=== PATIENT | male | born 1955 | race Caucasian/White ===

== ENCOUNTER 2018-06-20 16:40 | Outpatient (REF) | payer OTHER, SELFPAY ==
[2018-06-20 19:20] LABS: ALT 37 U/L (12-78); AST 28 U/L (15-37); Albumin 3.5 g/dL (3.4-5.0); Alkaline Phosphatase 116 U/L (46-116); Anion Gap 10.1 mmol/L (3-11); BUN 23 mg/dL (7-18); Bilirubin, Total 0.2 mg/dL (0.2-1.0); CO2 26.9 mmol/L (21.0-32.0); CREATININE 1.51 mg/dL (0.70-1.30); Calcium 8.7 mg/dL (8.5-10.1); Chloride 105 mmol/L (98-107); Estimated GFR 46.76 (mL/min/1.73m2); Glucose 110 mg/dL (70-100); Potassium 4.6 mmol/L (3.5-5.1); Sodium 142 mmol/L (136-145); Total Protein 7.1 g/dL (6.4-8.2)
[2018-06-23 10:57] LABS: PSA, Screening 0.9 ng/ml (0-4.5)
== END 2018-06-20 17:00 ==
LOC: NCHCN 16:40
PROVIDERS: PCP Family Medicine; Visit Provider Family Medicine
DX: Z00.00 Encounter for general adult medical examination without abnormal findings (principal); I10 Essential (primary) hypertension; N28.9 Disorder of kidney and ureter, unspecified; R73.9 Hyperglycemia, unspecified; Z12.5 Encounter for screening for malignant neoplasm of prostate
CPT/HCPCS: 80053; 84153; 83036

== ENCOUNTER 2019-03-27 16:40 | Outpatient (REF) | payer OTHER, SELFPAY ==
[2019-03-27 19:14] LABS: HCT 51.4 % (40.0-50.0); HGB 16.7 g/dL (13.5-17.5); Mean Corp. HGB Concentration 32.5 g/dL (32.0-36.0); Mean Corpuscular Hemoglobin 29.2 pg (27.0-33.0); Platelet Count 196 x1000/uL (130-400); RBC 5.71 m/cumm (4.50-6.00); RBC Distribution Width 13.7 % (11.8-14.1); White Blood Cell Count 8.81 k/cumm (4.4-10.8)
[2019-03-27 19:28] LABS: Anion Gap 8.4 mmol/L (3-11); BUN 27 mg/dL (7-18); CO2 28.6 mmol/L (21.0-32.0); CREATININE 1.48 mg/dL (0.70-1.30); Calcium 9.1 mg/dL (8.5-10.1); Chloride 104 mmol/L (98-107); Glucose 89 mg/dL (74-106); Sodium 141 mmol/L (136-145)
[2019-03-27 19:44] LABS: Hemoglobin A1C 5.8 % (4.5-6.2)
[2019-03-30 13:00] LABS: Varicella IgG Antibody Positive (See Note)
== END 2019-03-27 17:00 ==
LOC: NCHCN 16:40
PROVIDERS: PCP Family Medicine; Visit Provider Family Medicine
DX: Z00.00 Encounter for general adult medical examination without abnormal findings (principal); R73.9 Hyperglycemia, unspecified; D64.9 Anemia, unspecified; N28.9 Disorder of kidney and ureter, unspecified; I10 Essential (primary) hypertension; Z11.59 Encounter for screening for other viral diseases
CPT/HCPCS: 80048; 85027; 86787; 83036

== ENCOUNTER 2020-04-07 11:13 | Outpatient (REF) | payer OTHER, SELFPAY ==
[2020-04-07 18:41] LABS: HCT 54.4 % (40.0-50.0); HGB 17.6 g/dL (13.5-17.5)
[2020-04-07 19:27] LABS: Hemoglobin A1C 5.8 % (<5.7)
[2020-04-07 19:35] LABS: ALT 34 U/L (16-63); AST 23 U/L (15-37); Albumin 3.8 g/dL (3.4-5.0); Alkaline Phosphatase 64 U/L (46-116); Anion Gap 8.6 mmol/L (3-11); BUN 28 mg/dL (7-18); Bilirubin, Total 0.5 mg/dL (0.2-1.0); CO2 27.4 mmol/L (21.0-32.0); CREATININE 1.52 mg/dL (0.70-1.30); Calcium 9.5 mg/dL (8.5-10.1); Calculated LDL 139 mg/dL (<100); Chloride 103 mmol/L (98-107); Cholesterol 213 mg/dL (<200); Estimated GFR 46.11 (mL/min/1.73m2); Glucose 111 mg/dL (74-106); HDL Cholesterol 35 mg/dL (40-60); Potassium 4.7 mmol/L (3.5-5.1); Sodium 139 mmol/L (136-145); Total Protein 7.6 g/dL (6.4-8.2); Triglyceride 197 mg/dL (<150)
== END 2020-04-07 11:33 ==
LOC: NCHCN 11:13
PROVIDERS: PCP Family Medicine; Visit Provider Family Medicine
DX: D64.9 Anemia, unspecified (principal); I10 Essential (primary) hypertension; R73.03 Prediabetes; N28.9 Disorder of kidney and ureter, unspecified
CPT/HCPCS: 80053; 80061; 83036; 85014; 85018

== ENCOUNTER 2021-04-11 10:21 | Outpatient (REF) | payer OTHER, SELFPAY ==
[2021-04-11 13:20] LABS: HCT 51.3 % (40.0-50.0); HGB 16.4 g/dL (13.5-17.5)
[2021-04-11 13:30] LABS: ALT 32 U/L (16-63); AST 19 U/L (15-37); Albumin 3.6 g/dL (3.4-5.0); Alkaline Phosphatase 105 U/L (46-116); Anion Gap 12.7 mmol/L (3-11); BUN 33 mg/dL (7-18); Bilirubin, Total 0.3 mg/dL (0.2-1.0); CO2 24.3 mmol/L (21.0-32.0); CREATININE 1.3 mg/dL (0.70-1.30); Calcium 9.9 mg/dL (8.5-10.1); Calculated LDL 89 mg/dL (<100); Chloride 105 mmol/L (98-107); Cholesterol 147 mg/dL (<200); Estimated GFR 55.06 (mL/min/1.73m2); Glucose 118 mg/dL (74-106); HDL Cholesterol 36 mg/dL (40-60); Potassium 5.1 mmol/L (3.5-5.1); Sodium 142 mmol/L (136-145); Total Protein 8.1 g/dL (6.4-8.2); Triglyceride 111 mg/dL (<150)
[2021-04-11 13:34] LABS: Hemoglobin A1C 5.9 % (<5.7)
[2021-04-11 23:30] LABS: PSA, Screening 1.4 ng/mL (0.0-4.5)
== END 2021-04-11 10:22 | disposition home or self-care (01) ==
LOC: NCHCN 10:21
PROVIDERS: PCP Family Medicine; Visit Provider Family Medicine
DX: I25.5 Ischemic cardiomyopathy (principal); R73.03 Prediabetes; Z00.00 Encounter for general adult medical examination without abnormal findings; E78.5 Hyperlipidemia, unspecified; Z12.5 Encounter for screening for malignant neoplasm of prostate
CPT/HCPCS: 80053; 80061; 84153; 83036; 85014; 85018

== ENCOUNTER 2022-04-17 15:28 | Outpatient (REF) | payer MEDICARE, SELFPAY ==
[2022-04-17 15:47] LABS: HCT 55.2 % (40.0-50.0); MCH 30.2 pg (27.0-33.0); MCHC 32.6 % (32.0-36.0); MCV 93 fL (80-95); MPV 12.2 fL (8.0-11.0); Platelet Count 173 10^3/uL (130-400); RBC 5.96 10^6/uL (4.36-5.78); RDW 14.3 % (11.8-14.1); RDW-SD 49.1 fL; WBC 7.07 10^3/uL (4.4-10.8)
[2022-04-17 16:27] LABS: ALT 59 U/L (16-63); AST 37 U/L (15-37); Alkaline Phosphatase 82 U/L (46-116); Anion Gap 8.3 mmol/L (3-11); BUN 31 mg/dL (7-18); Bilirubin, Total 0.6 mg/dL (0.2-1.0); CO2 25.7 mmol/L (21.0-32.0); CREATININE 1.7 mg/dL (0.70-1.30); Chloride 102 mmol/L (98-107); Creatine Kinase 114 U/L (39-308); Estimated GFR 43.37 (mL/min/1.73m2); Glucose 124 mg/dL (74-106); Potassium 5.5 mmol/L (3.5-5.1); Sodium 136 mmol/L (136-145); Total Protein 8.6 g/dL (6.4-8.2)
[2022-04-17 16:34] LABS: Hemoglobin A1C 5.8 % (<5.7)
[2022-04-18 10:14] LABS: PSA, Diagnostic 1.3 ng/mL (<=4.5)
== END 2022-04-17 15:29 | disposition home or self-care (01) ==
LOC: NCHCN 15:28
PROVIDERS: PCP Family Medicine; Visit Provider Family Medicine
DX: R73.03 Prediabetes (principal); E78.5 Hyperlipidemia, unspecified; Z00.00 Encounter for general adult medical examination without abnormal findings; I10 Essential (primary) hypertension; I25.5 Ischemic cardiomyopathy; D64.9 Anemia, unspecified; N28.9 Disorder of kidney and ureter, unspecified
CPT/HCPCS: 80053; 82550; 85027; 83036; 84153

== ENCOUNTER → 2022-06-19 08:57 | Outpatient (BNVA) | payer MEDICARE, SELFPAY | PROVIDERS: PCP Family Medicine; Referring Provider Family Medicine; Visit Provider Physical Therapy Assistant | DX: R19.5 Other fecal abnormalities (principal); Z80.0 Family history of malignant neoplasm of digestive organs | CPT/HCPCS: 99203 ==

== ENCOUNTER 2022-06-28 09:15 | Day surgery (SDC) | payer MEDICARE, SELFPAY ==
--- NOTE | 2022-06-28 05:34 | W.PM.DSUDISC ---
Date of service: 06/28/22 Time of Service: 12:37 Discharge Plan Disposition Patient Disposition: Home Condition: Good Discharge Details Reason For Visit: Screening colonoscopy Attending Provider: Ramin Fox Primary Care Provider: Radha Stewart V Home Meds and New Rx's Prescriptions: Continued aspirin [Adult Aspirin Regimen] 81 mg tablet,delayed release (DR/EC) 81 mg PO DAILY pantoprazole 20 mg tablet,delayed release (DR/EC) 20 mg PO DAILY lisinopril 20 MG tablet 20 mg PO DAILY acetaminophen [Tylenol Extra Strength] 500 MG tablet 500 mg PO PRN Patient Comments: sometimes Tylenol arthritis sometimes extra strength tylenol 04/29/17 DCW . Pt. took two tablets of arthritis type t-1 1999 metoprolol tartrate 25 MG tablet 12.5 mg PO BID atorvastatin [Lipitor] 40 MG tablet 40 mg PO DAILY Patient Comments: 04.18.17 CORRECTING FOR PATIENT FROM 04.17.17 VISIT.HE ibuprofen 800 MG tablet 800 mg PO TID Qty: 30 0RF allopurinol 300 MG tablet 150 mg PO DAILY multivitamin [Daily Multi-Vitamin] 1 EACH tablet 1 ea PO DAILY Discontinued bisacodyl [Dulcolax (bisacodyl)] 5 mg tablet,delayed release (DR/EC) 5 mg PO ONCE Qty: 4 0RF Rx Instructions: Take according to provider's instructions for colonoscopy prep. polyethylene glycol 3350 17 gram/dose powder 17 g PO ONCE Qty: 238 0RF Rx Instructions: To be taken as directed by prescriber's office for colonoscopy prep. Discharge Instructions Instructions: Diverticulosis (GEN), Diverticulosis Diet (GEN) Additional Instructions: Jacky, I was able to complete your colonoscopy today. The quality of your preparation was excellent. I had good visualization of the entire lining of your colon. I did not see any evidence of polyps or tumors. You do have some mild sigmoid diverticulosis. It is possible that this could trigger the Cologuard test, since diverticula can be associated with some bleeding, and some forms of inflammation. A traditional recommendation after a negative colonoscopy is to follow-up in 10 years. However, with this positive Cologuard test I would tend to err on the side of caution, and repeat your colonoscopy in 5 years if you feel up to it 1. If tolerated, consume a soft, low fiber diet for 1-2 days. 2. Do not drive, drink alcohol, operate machinery, make critical decisions, or do activities that require coordination or balance for 24 hours. 3. Because air was put into your colon during the procedure, expelling air from your rectum (passing gas or farting) is normal. 4. You may not have a bowel movement for 1-3 days because of the colonoscopy prep. This is normal. 5. Go directly to the emergency room if you notice any of the following: Develop chills (warm to touch), or if you have a thermometer and your temperature is above 101 Difficulty breathing or difficultly swallowing Persistent vomiting Severe abdominal pain, other than gas cramps Severe chest pain Black, tarry stools Any bleeding ? exceeding one tablespoon 6. Call your physician if the site where your intravenous was started becomes red, swollen, painful, and warm to touch. 7. Your physician has reviewed your pre-procedure medications. Please continue to take those medications as previously ordered. You will be given specific information/education regarding any changes to your medications before leaving. Activity:: Activity as Tolerated Diet:: As Tolerated Discharge Orders Discharge Orders: Discharge Order (Routine); Ordered 06/28/22 Ordered By: Ramin Fox DS: Diagnosis Discharge Diagnosis (1) Positive colorectal cancer screening using Cologuard test: Status: Acute Asessment and Plan: Normal-appearing colonoscopy, with excellent prep. Based on this positive Cologuard test, I recommend another screening test in 5 years. I think a Cologuard would be fine at that time. If that Cologuard is negative, I would believe those results. Alternatively, direct visualization with colonoscopy would be a reasonable option as well.
--- NOTE | 2022-06-28 05:49 | W.COLOREPORT ---
Date of service: 06/28/22 Time of Service: 12:40 Colonoscopy Report Date of procedure: 06/28/22 Pre-op diagnosis general: Screening colonoscopy Post-op diagnosis procedure note: other (Diverticulosis) Procedure: Colonoscopy Surgeon: Ramin Fox Anesthesia Type: General:No Airway Estimated blood loss (mL): 0 Pathology: none sent Complications: None Disposition: same day Indications: Jacky is a 67 year old male with a positive cologuard test. He is here for screening colonoscopy Prep: Miralax/Dulcolax Procedure Start Time: 12:13 Procedure End Time: 12:30 Retraction Time: 12 Findings: Rare sigmoid diverticulosis Procedure Description: After the induction of monitored anesthetic care, and with the patient in left lateral decubitus position, I began by performing an external anorectal exam.? Perineum and skin were normal, as was the anal verge.? There was no evidence of external hemorrhoids.? Next, I performed a digital rectal exam.? I did not appreciate any abnormal findings.? Next, I advanced a colonoscope into the rectal vault.? I performed retroflexion.? This was normal.? Using insufflation, I then advanced the colonoscope beyond the rectal folds and into the sigmoid colon before advancing towards the cecum.? The quality of the prep was excellent.? There were rare, small sigmoid diverticuli. The scope was noted to be in the cecum by identification of the ileocecal valve and appendiceal orifice.? I then began withdrawing the colonoscope using repeated irrigation as necessary for full evaluation of the colonic mucosa. ?Once the scope was withdrawn to the level of the rectum, great care was taken to examine portions of the rectal folds.? Finally, the scope was withdrawn and the patient was brought to the same-day surgery recovery unit as the anesthetic wore off. ?Aside from some diverticulosis, which may cause the Cologuard to be positive, I did not see any other signs of colon polyps or cancers. The findings and instructions were shared with the patient prior to discharge. Traditional recommendations described 10-year intervals for screening colonoscopies with normal results. However, the influence of Cologuard testing at this point is uncertain. In that regard, I would recommend another test in 5 years.
[2022-06-28 09:10] VITALS: BP 165/99; PULSE 64; RESP 16; TEMP 36.4; O2SAT 97
[2022-06-28] MEDS: Lactated Ringers 1,000 ML 80 ML IV (10:10)
--- NOTE | 2022-06-28 10:17 | W.ANESPRE ---
General Info Date of Service Date Performed: 06/28/22 Height: 5 ft 7.5 in Weight: 99.7 kg Body Mass Index (BMI): 33.9 Surgical Procedure: Operation Date: 06/28/22 11:05 Proposed Procedure Side Surgeon lorin Fox MD Meds Allergies and Home Medications Allergies Allergy/AdvReac Type Severity Reaction Status Date / Time amlodipine besy-benazepril Allergy Severe Skin Rash Uncoded 06/28/22 09:55 Home Medication Medication Instructions Recorded allopurinol 300 mg tablet 150 mg PO DAILY 03/05/17 multivitamin (Daily Multi-Vitamin 1 ea PO DAILY 03/05/17 tablet) acetaminophen 500 mg tablet 500 mg PO PRN 04/17/17 (Tylenol Extra Strength) lisinopril 20 mg tablet 20 mg PO DAILY 04/17/17 metoprolol tartrate 25 mg tablet 12.5 mg PO BID 04/17/17 atorvastatin 40 mg tablet (Lipitor) 40 mg PO DAILY 04/18/17 ibuprofen 800 mg tablet 800 mg PO TID #30 tabs 05/02/17 aspirin 81 mg tablet,delayed 81 mg PO DAILY 06/18/22 release (Adult Aspirin Regimen) pantoprazole 20 mg tablet,delayed 20 mg PO DAILY 06/18/22 release Current Visit Medications: Current Medications Generic Name Dose Route Start Last Admin Trade Name Varunq PRN Reason Stop Dose Admin Hyoscyamine Sulfate 0.125 mg 06/28/22 05:51 Hyoscyamine 0.125 Mg Sl/Oral/Chew SL DIRECTED PRN Ringer's Solution 1,000 mls @ 80 mls/hr 06/28/22 06:00 06/28/22 10:10 IV 07/27/22 23:59 80 mls/hr INFUSION MIKA Administration IV Miscellaneous Supplies 1 each 06/28/22 06:00 Iv Access IV 07/27/22 23:59 DIRECTED MIKA Ondansetron HCl 4 mg 06/28/22 05:51 Ondansetron 4 Mg/2 Ml Vial IVP Q4H PRN PRN Nausea / Vomiting Sodium Chloride 0 ml 06/28/22 06:00 Normal Saline Flush 10 Ml Syr IV 07/27/22 23:59 PRN PRN Sodium Chloride 0 ml 06/28/22 06:00 Normal Saline 10 Ml Vial IJ 07/27/22 23:59 DIRECTED PRN Sterile Water 0 ml 06/28/22 06:00 Water,Injection,Sterile 10 Ml Vial IJ 07/27/22 23:59 DIRECTED PRN PFSH Active Problems Active Problems: Problem Status Onset Code GI bleed due to NSAIDs K92.2, T39.395A CKD (chronic kidney disease) N18.9 Coronary artery disease I25.10 Guaiac positive stools R19.5 Hyperlipidemia E78.5 Essential tremor G25.0 Prediabetes R73.03 Medication management Z79.899 Ischemic cardiomyopathy I25.5 Anemia D64.9 Shoulder pain, right M25.511 Duodenal ulcer K26.9 Proteinuria R80.9 Gout M10.9 Hypertension I10 Positive colorectal cancer screening using Cologuard test R19.5 Medical History Medical History NSTEMI (non-ST elevated myocardial infarction) Per pt. stated he was told he had a heart attack but does not know when (was told this in 2018). Per pt. 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 Surgical History Surgical History (Updated 06/28/22 @ 10:01 by Lizzette Johnston) EGD - MAC (03/07/17) History of shoulder surgery Tobacco Smoking/Tobacco Use Status: Never Alcohol Alcohol Intake: current Alcohol intake frequency: holidays/special occasions only Substance Use Substance use: Never Substance use type: does not use Vital Signs and Lab Results Vital Signs Most Recent Vital Signs in EMR: Most Recent Vital Signs Temp Pulse Resp BP Pulse Ox 36.4 C L 64 16 165/99 H 97 06/28/22 09:10 06/28/22 09:10 06/28/22 09:10 06/28/22 09:10 06/28/22 09:10 Lab Results Blood Type / Crossmatch: No Data to Display Complete Blood Count: No Data to Display Complete Metabolic Panel: No Data to Display Liver Function Panel: No Data to Display Coagulation Panel: No Data to Display Cardiac Panel: No Data to Display Arterial Blood Gas: No Data to Display Venous Blood Gas: No Data to Display Pancreas Panel: No Data to Display Thyroid Panel: No Data to Display Infectious Disease: No Data to Display Blood Cultures: No Data to Display Toxicology Panel: No Data to Display Imaging and Studies Imaging and Studies Study information below may be from another EMR and interpreted by another provider. Please see original notes in EMR for more complete details. Echocardiogram Summary: Date of study: 03/06/2017 Transthoracic Echocardiography M-mode, complete 2D, complete spectral Doppler, and color Doppler *STUDY CONCLUSIONS* Impressions: Mild ischemic cardiomyopathy, with normal left-sided filling pressure. Summary: 1. Left ventricle: The cavity size was at the upper limits of normal. There was mild focal basal hypertrophy of the septum. There was a false tendon within the ventricle. Systolic function was mildly reduced. The estimated ejection fraction was 45-50%. Akinesis of the basal-midinferior myocardium. Akinesis of the entireinferolateral myocardium. 2. Right ventricle: The cavity size was normal. Wall thickness was normal. Systolic function was normal. Normal Valves Anesthesia Assessment and Plan Anesthesia History Personal History: No History of Anesthesia Complications Family History: No Family History of Anesthesia Complications Exercise Tolerance Exercise Tolerance: Metabolic Equivalents>4 Pertinent Negatives Pertinent Negatives: No Symptoms of GERD and No Major Pulmonary Symptoms or Complaints Cardiac & Pulmonary Exam Cardiac Exam: Normal S1/S2 Heart Sounds Pulmonary Exam: Clear Bilateral Breath Sounds Implantable Cardiac Device Does patient have a Pacemaker or an ICD?: No Airway Exam Known Difficult Airway: No Mallampati Class: 1 Mouth Opening: Normal (> 3cm) Thyromental Distance: Greater than 3 cm Neck Range of Motion: Full ROM Neck Circumference: Normal Teeth Condition: Normal Dentition ASA Classification ASA Score: ASA 3 Emergency Case?: No NPO Status NPO Status: NPO Clears >2 hours, Solids >8 hours Anesthesia Plan Resuscitation Status: Full Code Anesthesia Technique: General Anesthesia Airway Planned: Natural Airway Monitors Used: Standard Monitors
[2022-06-28 10:19] VITALS: BMI 33.9
[2022-06-28 12:35] VITALS: BP 105/77; PULSE 69; RESP 17; TEMP 36.7; O2SAT 93
[2022-06-28 12:42] VITALS: BP 107/76; PULSE 63; RESP 18; O2SAT 94
[2022-06-28 12:46] VITALS: BP 127/87; PULSE 69; RESP 18; O2SAT 95
[2022-06-28 13:00] VITALS: BP 144/100; PULSE 60; RESP 16; TEMP 36.4; O2SAT 98
--- NOTE | 2022-06-28 14:25 | W.ANESPOSTOP ---
Postoperative Evaluation Date, Time and Location Date Performed: 06/28/22 Time Performed: 12:40 Patient Location: Day Surgery Unit Vital Signs Most Recent Imported Vital Signs: Most Recent Vital Signs Temp Pulse Resp BP Pulse Ox 36.4 C L 60 16 144/100 H 98 06/28/22 13:00 06/28/22 13:00 06/28/22 13:00 06/28/22 13:00 06/28/22 13:00 Pain Score Most Recent Pain Score: Most Recent Pain Score Pain Level 0 06/28/22 13:00 Assessment Mental Status: Awake (Alert & Oriented to Patient Baseline) Airway and Respiratory Function: Patent airway with normal (patient baseline) respiratory exam Cardiovascular Function: Hemodynamically Stable Hydration Status: Adequately Hydrated Nausea & Vomiting: No Nausea or Vomiting Pain: Pt. Denies Any Pain Peripheral Nerve Block: Patient did not receive a nerve block
== END 2022-06-28 13:30 | disposition home or self-care (01) ==
PROVIDERS: PCP Family Medicine; Visit Provider Surgery
PROC: 0DJD8ZZ Inspection of Lower Intestinal Tract, Via Natural or Artificial Opening Endoscopic (ICD-10-PCS; CPT 45378; principal; 2022-06-28 11:00)
DX: R19.5 Other fecal abnormalities (principal); K57.30 Diverticulosis of large intestine without perforation or abscess without bleeding
CPT/HCPCS: 45378

== ENCOUNTER 2022-07-16 11:21 | Outpatient (REF) | payer MEDICARE, SELFPAY ==
[2022-07-16 15:21] LABS: BUN 24 mg/dL (7-18); CREATININE 1.5 mg/dL (0.70-1.30); Calcium 9.5 mg/dL (8.5-10.1); Chloride 106 mmol/L (98-107); Glucose 133 mg/dL (74-106); Potassium 4.6 mmol/L (3.5-5.1); Sodium 139 mmol/L (136-145)
== END 2022-07-16 11:22 | disposition home or self-care (01) ==
LOC: NCHCN 11:21
PROVIDERS: PCP Family Medicine; Visit Provider Family Medicine
DX: I10 Essential (primary) hypertension (principal); E78.5 Hyperlipidemia, unspecified
CPT/HCPCS: 80048

== ENCOUNTER 2023-04-18 14:14 | Outpatient (REF) | payer MEDICARE, SELFPAY ==
[2023-04-18 16:27] LABS: Abs Immature Grans 0.03 10^3/uL (0.0-0.06); Absolute Basophil Count 0.03 10^3/uL (0.0-0.2); Absolute Eosinophil Count 0.08 10^3/uL (0.0-0.7); Absolute Lymphocyte Count 1.81 10^3/uL (1.2-3.4); Absolute Monocyte Count 0.72 10^3/uL (0.1-0.8); Absolute Neutrophil Count 4.37 10^3/uL (1.2-6.7); Basophils % 0.4; Eosinophils % 1.1; HCT 52.4 % (40.0-50.0); HGB 17.3 g/dL (13.5-17.5); Immature Grans % 0.4; Lymphocytes % 25.7; MCH 30.6 pg (27.0-33.0); MCV 93 fL (80-95); Monocytes % 10.2; Neutrophils % 62.2; Platelet Count 173 10^3/uL (130-400); RBC 5.65 10^6/uL (4.36-5.78); RDW 13.1 % (11.8-14.1); RDW-SD 44.7 fL; WBC 7.04 10^3/uL (4.4-10.8)
[2023-04-18 16:49] LABS: Hemoglobin A1C 5.7 % (<5.7)
[2023-04-18 17:08] LABS: ALT 51 U/L (16-63); AST 37 U/L (15-37); Albumin 3.7 g/dL (3.4-5.0); Alkaline Phosphatase 72 U/L (46-116); Anion Gap 5.1 mmol/L (3-11); BUN 23 mg/dL (7-18); Bilirubin, Total 0.7 mg/dL (0.2-1.0); CO2 29.9 mmol/L (21.0-32.0); CREATININE 1.6 mg/dL (0.70-1.30); Calcium 10.1 mg/dL (8.5-10.1); Chloride 105 mmol/L (98-107); Estimated GFR 46.35 (mL/min/1.73m2); Glucose 116 mg/dL (74-106); Potassium 5.3 mmol/L (3.5-5.1); Sodium 140 mmol/L (136-145); Total Protein 7.9 g/dL (6.4-8.2)
== END 2023-04-18 14:15 | disposition home or self-care (01) ==
LOC: NCHCN 14:14
PROVIDERS: PCP Family Medicine; Visit Provider Family Medicine
DX: I10 Essential (primary) hypertension (principal); R73.03 Prediabetes; K92.89 Other specified diseases of the digestive system
CPT/HCPCS: 80053; 83036; 83874; 85025

== ENCOUNTER 2023-06-27 11:55 | Outpatient (REF) | payer MEDICARE, SELFPAY ==
[2023-06-27 17:10] LABS: Anion Gap 7.2 mmol/L (3-11); BUN 19 mg/dL (7-18); CO2 28.8 mmol/L (21.0-32.0); CREATININE 1.5 mg/dL (0.70-1.30); Calcium 9.5 mg/dL (8.5-10.1); Chloride 106 mmol/L (98-107); Estimated GFR 50.08 (mL/min/1.73m2); Glucose 160 mg/dL (74-106); Potassium 4.9 mmol/L (3.5-5.1); Sodium 142 mmol/L (136-145)
== END 2023-06-27 11:56 | disposition home or self-care (01) ==
LOC: NCHCN 11:55
PROVIDERS: PCP Family Medicine; Visit Provider Nurse Practitioner Family
DX: I10 Essential (primary) hypertension (principal)
CPT/HCPCS: 80048

== ENCOUNTER 2024-04-21 09:13 | Outpatient (REF) | payer BC, SELFPAY ==
[2024-04-21 16:15] LABS: HCT 50.2 % (40.0-50.0); HGB 16.6 g/dL (13.5-17.5); MCH 30.8 pg (27.0-33.0); MCHC 33.1 % (32.0-36.0); MCV 93 fL (80-95); MPV 11.4 fL (8.0-11.0); Platelet Count 177 10^3/uL (130-400); RBC 5.39 10^6/uL (4.36-5.78); RDW 12.9 % (11.8-14.1); RDW-SD 43.9 fL; WBC 7.93 10^3/uL (4.4-10.8)
[2024-04-21 17:10] LABS: Hemoglobin A1C 5.8 % (<5.7)
[2024-04-21 17:41] LABS: ALT 33 U/L (16-63); AST 29 U/L (15-37); Albumin 3.5 g/dL (3.4-5.0); Alkaline Phosphatase 86 U/L (46-116); Anion Gap 11.6 mmol/L (3-11); BUN 19 mg/dL (7-18); Bilirubin, Total 0.63 mg/dL (0.2-1.0); CO2 23.4 mmol/L (21.0-32.0); CREATININE 1.3 mg/dL (0.70-1.30); Calcium 9.7 mg/dL (8.5-10.1); Chloride 107 mmol/L (98-107); Glucose 112 mg/dL (74-106); Sodium 142 mmol/L (136-145); TSH 1.42 uIU/mL (0.36-3.74); Total Protein 7.5 g/dL (6.4-8.2)
[2024-04-21 22:25] LABS: PSA, Screening 1.9 ng/mL (<=6.5)
== END 2024-04-21 09:14 | disposition home or self-care (01) ==
LOC: NCHCN 09:13
PROVIDERS: PCP Family Medicine; Visit Provider Family Medicine
DX: Z00.00 Encounter for general adult medical examination without abnormal findings (principal); I10 Essential (primary) hypertension; Z12.5 Encounter for screening for malignant neoplasm of prostate
CPT/HCPCS: 80053; 84153; 85027; 83036; 84443

== ENCOUNTER 2024-05-07 02:39 | Outpatient (CLI) | payer MEDICARE, SELFPAY ==
--- NOTE | 2024-05-07 08:30 | DI.US_ITS ---
APPROVED REPORT EXAM: Comprehensive 2D, Doppler, and color-flow Echocardiogram Patient Location: Out-Patient Manager Cable: Kumar Melvin RDCS (AE) Indications: Ischemic CODING ANALYST Other Information Study Quality: Adequate Conclusion Borderline dilated left ventricle. Normal left ventricular wall thickness. Ejection fraction is 55% . No segmental wall motion abnormalities are identified Normal right ventricular size and function Both atria are normal in size There is no structural or hemodynamically significant valvular disease Ascending aorta is very mildly dilated at 3.59 cm Wall motion Left Ventricle Left ventricle is borderline dilated. The left ventricular systolic function is normal. The left vent ricular ejection fraction is within the normal range. There is normal left ventricular wall thickness . There is normal LV segmental wall motion. There is no ventricular septal defect visualized. LVEF is 55-60%. Right Ventricle The right ventricle is normal size. The right ventricular systolic function is normal. Atria The left atrium size is normal. The right atrium size is normal. The interatrial septum is intact wit h no evidence for an atrial septal defect. Aortic Valve The aortic valve is normal in structure. Aortic valve is trileaflet. There is no aortic valvular sten osis. No aortic regurgitation is present. Mitral Valve The mitral valve is normal in structure. No evidence of mitral valve stenosis. Trace to mild mitral r egurgitation. Tricuspid Valve The tricuspid valve is normal in structure. There is no tricuspid valve stenosis. Trace tricuspid reg urgitation. Unable to assess PA pressure. Pulmonic Valve The pulmonary valve is normal in structure. There is no pulmonic valvular stenosis. Trace pulmonic re gurgitation. Great Vessels The aortic root is normal in size. The ascending aorta is mildly dilated. Aortic arch is not well vis ualized. IVC is normal in size and collapses >50% with inspiration. Pericardium There is no pericardial effusion. 2D Dimensions IVSD d PLAX 0.59 cm M: 0.6-1.2 Ao Root d 3.17 cm M: 3.1 - 3.7 LVPW d PLAX 0.55 cm M: 0.6 - 1.2 Ao Asc Diam d 3.59 cm M: 2.6 - 3.4 LVID d PLAX 5.92 cm M: 4.2 - 5.8 LVDs 4.19 cm M: 2.5 - 4.0 LV EF Teichholz 55.3 % FS 29.28 % LV EDV (Teich) 174.5 mL LV ESV (Teich) 78.0 mL Stroke Vol Index (Teich) 45.33 M-Mode TAPSE 2.95 cm (M/F) >1.7 Auto EF LV EDV A4C 165.2 mL LV EDV A2C 113.2 mL LV EDV BP 140.9 mL LV ESV A4C 75.0 mL LV ESV A2C 45.6 mL LV ESV BP 63.1 mL LVEF(%) A4C 54.6 % LVEF(%) A2C 59.7 % LVEF(%) BP 55.2 % LV SV A4C 90.2 ml LV SV A2C 67.5 ml LV SV BP 77.8 ml LV CO A4C 4.3 L/min LV CO A2C 3.1 L/min LV CO BP 3.7 L/min HR A4C 48.20 BPM HR A2C 45.80 BPM LV EDV Index (BP) LA Volume LA Length A4C 4.9 cm LA Length A2C 5.9 cm LA Area A4C s 10.83 cm2 LA Area A2C s 21.76 cm2 LA Vol A4C A-L 20.17 mL LA Vol A2C A-L 67.80 mL LA Vol Biplane A-L 40.5 mL LA Vol/BSA A4C A-L LA Vol/BSA A2C A-L LA Vol/BSA BP A-L 19.0 mL/m2 LA Vol A4C MOD 18.5 mL LA Vol A2C MOD 66.5 mL LA Vol BP MOD 37.8 mL RA Volume RA Area A4C 10.7 cm2 RA ESV A4C (A-L) 25.0mL RA Vol/BSA A4C A-L RA Length A4C 3.9 cm RA ESV A4C (MOD) 22.8mL LV Diastology MV E' medial 0.077 (>0.07 m/s) MV E Vmax 0.60 (0.4-1.3 m/s) MV E/E' MED 7.84 (<14) MV A Vmax 0.75 (0.4-1.3 m/s) MV E' lateral 0.087 (>0.1 m/s) E/A Ratio 0.8 MV E/E' LAT 6.91 (<14) MV E' Average 0.082 m/s MV E/E'(average) 7.35 Aortic Valve AoV Vmax 1.40 m/s LVOT Vmax 1.05 m/s AoV Peak Grad 7.9 mmHg LVOT Peak Grad 4.4 mmHg AoV Area (Vmax) 1.82 cm2 LVOT VTI 0.250 m AoV VTI 0.323 m LVOT Mean Grad 1.9 mmHg AoV Mean Shan. 0.83 m/s LVOT SV 60.73 mL AoV Mean Grad 3.3 mmHg LVOT Diam s 1.75 cm AoV Area (VTI) 1.88 cm2 AV Regurg Peak Gr. 7.87 mmHg Velocity Ratio 0.75 Mitral Valve MV DT 343 (160-240 msec) MV Vmax TIPS 0.68 m/s MV Mean Grad 0.6 (<2mmHg) MV VTI 0.358 m Pulmonary Valve PV Vmax 1.40 (0.5-1.5 m/s) RVOT Vmax 0.76 m/s PV Peak Grad 7.9 mmHg RVOT Peak Gr. 2.3 mmHg PV Mean Shan 0.94 m/s RVOT VTI 0.162 m PV Mean Grad 4.1 mmHg RVOT Mean Gr. 1.1 mmHg
== END 2024-05-07 02:59 ==
PROVIDERS: PCP Family Medicine; Visit Provider Internal Medicine Cardiovascular Disease
DX: I25.5 Ischemic cardiomyopathy (principal)
CPT/HCPCS: 93306